=== PATIENT | male | born 1940 | race Caucasian/White ===

== ENCOUNTER 2018-08-08 08:36 | Inpatient (IN) | payer OTHER, MEDICAID ==
[~2018-08-08] VITALS: Ht 165.1 cm; Wt 69.4 kg
[~2018-08-08 08:36] MED LIST: ASPI-1159 MT; FEBU40TA MT; GABA-531 MT; LISI-186 MT; PSYL3.4P5 PO; TERA5CAP4 MT
[2018-08-08] MEDS ORDERED: ASPIRIN 81MG TABLET PO ONE (09:45)
[2018-08-08] MEDS ORDERED: NITROGLYCERIN 0.4MG TABLET SL SL ONE (09:45)
[2018-08-08 10:12] LABS: BASOPHILS % 0.3 % (0.0-2.0); EOSINOPHILS % 0.2 % (0.0-5.0); HEMATOCRIT. 43.8 % (42.0-52.0); LYMPHOCYTES % 21.8 % (20.0-50.0); MEAN CORPUSCULAR HEMOGLOBIN 32.1 pg (28.0-32.0); MEAN CORPUSCULAR VOLUME 93.5 fL (80.0-94.0); MEAN PLATELET VOLUME 8.6 fl (7.4-10.4); MONOCYTES % 6.6 % (2.0-8.0); NEUTROPHILS % 71.1 % (40.0-76.0); PLATELET 244 x1000/uL (130-400); RED BLOOD CELL COUNT 4.69 mill/uL (4.7-6.1); RED CELL DISTRIBUTION WIDTH 14.5 % (11.6-14.6)
[2018-08-08 10:26] LABS: CHLORIDE 106 mEq/L (98-107)
[2018-08-08] MEDS ORDERED: MORPHINE SULFATE 2 MG/ML CPJ (NOT FOR IM USE) IV ONE (12:45)
[2018-08-08] MEDS ORDERED: HYDROCODONE/ACETAMINOPHEN 5/325MG TABLET PO PRN (14:45)
[2018-08-08] MEDS ORDERED: ACETAMINOPHEN 325MG TABLET PO PRN (14:45)
[2018-08-08] MEDS ORDERED: DOCUSATE SODIUM 100MG CAPSULE PO PRN (14:45)
[2018-08-08] MEDS ORDERED: CLONIDINE 0.1MG TABLET PO PRN (14:45)
[2018-08-08] MEDS ORDERED: MAGNESIUM/ALUMINUM HYDROXIDE/SIMETHICONE 30ML UDC PO PRN (14:45)
[2018-08-08] MEDS ORDERED: ONDANSETRON HCL 4MG/2ML INJ IV PRN (14:45)
[2018-08-08 15:35] LABS: CHLORIDE 106 mEq/L (98-107)
[2018-08-08 16:00] VITALS: BP 151/69
[2018-08-08 17:05] VITALS: BP 151/69
[2018-08-08] MEDS: AMLODIPINE 2.5MG TABLET PO SCH (17:27)
[2018-08-08 17:29] LABS: CLARITY URINE CLEAR (CLEAR); COLOR URINE YELLOW (YELLOW); KETONES URINE NEGATIVE (NEGATIVE); LEUKOCYTE ESTERASE URINE NEGATIVE (NEGATIVE); NITRITE URINE NEGATIVE (NEGATIVE); OCCULT BLOOD URINE NEGATIVE (NEGATIVE); PH URINE 5.5 (4.5-8.0); PROTEIN URINE NEGATIVE (NEGATIVE); UROBILINOGEN URINE 0.2 E.U./dL (0.2-1.0)
[2018-08-08 17:51] LABS: *AMPHETAMINES SCREEN URINE NEGATIVE (NEGATIVE); *BARBITURATES SCREEN URINE NEGATIVE (NEGATIVE); *COCAINE SCREEN URINE NEGATIVE (NEGATIVE)
[2018-08-08 17:52] LABS: *BENZODIAZEPINES SCREEN URINE NEGATIVE (NEGATIVE); CANNABINOID URINE SCREEN NEGATIVE (NEGATIVE); METHADONE URINE SCREEN NEGATIVE (NEGATIVE); OPIATES URINE SCREEN NEGATIVE (NEGATIVE); PHENCYCLIDINE URINE SCREEN NEGATIVE (NEGATIVE)
[2018-08-08] MEDS ORDERED: TRAM50TA3 PO (18:26)
[2018-08-08] MEDS ORDERED: ATOR10TA69 PO (18:26)
[2018-08-08] MEDS ORDERED: OMEP20CA10 PO (18:26)
[2018-08-08] MEDS ORDERED: MAGN400C PO (18:26)
[2018-08-08 20:00] VITALS: BP 132/72
[2018-08-08] MEDS: TERAZOSIN HCL 5MG CAPSULE PO SCH (21:37)
[2018-08-08] MEDS: GABAPENTIN 300MG CAPSULE PO SCH (21:37)
[2018-08-08] MEDS: ENOXAPARIN 40MG/0.4ML SYR SUBCUT SCH (21:38)
[2018-08-08] MEDS: TRAMADOL 50MG TABLET PO PRN (23:05)
[2018-08-09] VITALS (7 sets, daily range): BP systolic 98–130; BP diastolic 53–73
[2018-08-09] MEDS: IPRATROPIUM/ALBUTEROL 0.5-3(2.5)MG/3ML NEB INH SCH ×2 (02:00→12:12)
[2018-08-09] MEDS ORDERED: OMEPRAZOLE 20MG CAPSULE EXTENDED RELEASE PO SCH (07:40)
[2018-08-09 08:06] LABS: BASOPHILS % 0.2 % (0.0-2.0); EOSINOPHILS % 0.1 % (0.0-5.0); HEMATOCRIT. 38.9 % (42.0-52.0); HEMOGLOBIN. 13.6 g/dL (14.0-18.0); LYMPHOCYTES % 23.8 % (20.0-50.0); MEAN CORPUSCULAR HEMOGLOBIN 32.4 pg (28.0-32.0); MEAN CORPUSCULAR VOLUME 92.6 fL (80.0-94.0); MEAN PLATELET VOLUME 8.7 fl (7.4-10.4); MONOCYTES % 7.4 % (2.0-8.0); NEUTROPHILS % 68.5 % (40.0-76.0); PLATELET 219 x1000/uL (130-400); RED CELL DISTRIBUTION WIDTH 14.1 % (11.6-14.6)
[2018-08-09 08:18] LABS: CHLORIDE 107 mEq/L (98-107)
[2018-08-09 08:28] LABS: CREATINE KINASE 36 IU/L (39-308); CREATINE KINASE MB FRACTION < 1.0 ng/mL (0.5-3.6); HDL CHOLESTEROL 32 mg/dL (40-59); LDL CHOLESTEROL 86 mg/dL (5-100)
[2018-08-09] MEDS: PSYLLIUM SEED PACKET PO SCH ×2 (08:45→17:41)
[2018-08-09] MEDS: AMLODIPINE 2.5MG TABLET PO SCH ×2 (08:45→20:54)
[2018-08-09] MEDS: GABAPENTIN 300MG CAPSULE PO SCH ×2 (08:46→17:41)
[2018-08-09] MEDS ORDERED: MAGNESIUM OXIDE 400MG TABLET PO SCH (09:00)
[2018-08-09] MEDS ORDERED: LISINOPRIL 10MG TABLET PO SCH (09:00)
[2018-08-09] MEDS ORDERED: ASPIRIN 81MG EC TABLET PO SCH (09:00)
[2018-08-09] MEDS: TRAMADOL 50MG TABLET PO PRN (09:00)
[2018-08-09] MEDS ORDERED: ASPIRIN 81MG TABLET PO SCH (09:00)
[2018-08-09] MEDS: TERAZOSIN HCL 5MG CAPSULE PO SCH (20:55)
[2018-08-09] MEDS: ENOXAPARIN 40MG/0.4ML SYR SUBCUT SCH (20:55)
[2018-08-09] MEDS ORDERED: ATORVASTATIN CALCIUM 10MG TABLET PO SCH (21:00)
== END 2018-08-09 22:08 | disposition home or self-care (01) | DRG 206 ==
LOC: ER 08:36 → 7WST 12:54 → EDBEDREQ 13:02 → EDBEDREQTM 13:02 → ENRESERV 14:56
PROVIDERS: ADMIT Internal Medicine; ATTEND Internal Medicine
DX: M94.0 Chondrocostal junction syndrome [Tietze] (principal); R07.89 Other chest pain; G62.9 Polyneuropathy, unspecified; E78.5 Hyperlipidemia, unspecified; I10 Essential (primary) hypertension; N40.0 Benign prostatic hyperplasia without lower urinary tract symptoms; R79.1 Abnormal coagulation profile; S80.11XA Contusion of right lower leg, initial encounter; V89.2XXA Person injured in unspecified motor-vehicle accident, traffic, initial encounter; Y93.89 Activity, other specified; Y92.488 Other paved roadways as the place of occurrence of the external cause; Y99.8 Other external cause status
CPT/HCPCS: 36415; 71045; 73590; 80048; 80061; 80305; 82550; 82553; 83735; 83880; 84443; 84484; 85379; 93005; 93306; 93970; 94640; 96374; 99285; J1650; J2270; J7620